=== PATIENT | male | born 1980 | race Two or more races ===

== ENCOUNTER 2017-09-06 13:41 | Emergency (ER) | payer BC ==
[~2017-09-06] VITALS: Ht 185.4 cm; Wt 96.3 kg
[2017-09-06 13:47] VITALS: BP 113/72
[2017-09-06] MEDS ORDERED: KETOROLAC 30 MG/1 ML ONE (15:13)
[2017-09-06] MEDS ORDERED: KETOROLAC 30 MG/1 ML IM ONE (15:30)
== END 2017-09-06 15:26 | disposition home or self-care (01) ==
LOC: ED 15:25
DX: S82.61XA Displaced fracture of lateral malleolus of right fibula, initial encounter for closed fracture (principal); F17.200 Nicotine dependence, unspecified, uncomplicated; X50.1XXA Overexertion from prolonged static or awkward postures, initial encounter; Y93.01 Activity, walking, marching and hiking; Y92.009 Unspecified place in unspecified non-institutional (private) residence as the place of occurrence of the external cause; Y99.8 Other external cause status
CPT/HCPCS: 29515; 99284

== ENCOUNTER 2017-12-13 17:21 | Emergency (ER) | payer BC ==
[~2017-12-13] VITALS: Ht 188 cm; Wt 89.9 kg
[2017-12-13 17:27] VITALS: BP 131/82
[2017-12-13] MEDS ORDERED: DIPH,PERTUSS(ACELL),TET VAC/PF 0.5 ML IM-VACC ONE ×2 (17:30→17:50)
[2017-12-13] MEDS ORDERED: LIDOCAINE 1%, 10ML INFIL ONE (18:00)
== END 2017-12-13 18:09 | disposition home or self-care (01) ==
LOC: ED 17:35
DX: L03.116 Cellulitis of left lower limb (principal); F17.200 Nicotine dependence, unspecified, uncomplicated
CPT/HCPCS: 10060; 99283

== ENCOUNTER 2017-12-16 16:50 | Emergency (ER) | payer BC ==
[~2017-12-16] VITALS: Ht 188 cm; Wt 91.1 kg
[2017-12-16 16:54] VITALS: BP 141/82
[2017-12-16] MEDS ORDERED: LIDOCAINE 2%, 20ML SQ ONE (17:00)
[2017-12-16] MEDS ORDERED: LIDOCAINE-MPF 2% ,5ML ONE (17:09)
[2017-12-16] MEDS ORDERED: LIDOCAINE-MPF 2% ,5ML SQ ONE ×2 (17:30)
[2017-12-16] MEDS ORDERED: LIDOCAINE 1%-EPI 1:100K, 20ML SQ ONE (17:30)
== END 2017-12-16 18:00 | disposition home or self-care (01) ==
LOC: ED 17:45
DX: L02.416 Cutaneous abscess of left lower limb (principal); I89.1 Lymphangitis; F17.200 Nicotine dependence, unspecified, uncomplicated
CPT/HCPCS: 10060; 99283

== ENCOUNTER 2017-12-17 16:24 | Emergency (ER) | payer BC ==
[~2017-12-17] VITALS: Ht 188 cm; Wt 92.4 kg
[2017-12-17 16:42] VITALS: BP 124/81
== END 2017-12-17 17:07 | disposition home or self-care (01) ==
LOC: ED 17:01
DX: L03.116 Cellulitis of left lower limb (principal)
CPT/HCPCS: 99281